=== PATIENT | male | born 1935 | race Caucasian/White ===

== ENCOUNTER 2017-12-01 06:25 | Inpatient (IN) | payer OTHER ==
[2017-12-01] MEDS: HYDROmorphONE 0.5 MG/0.5 ML SYG IV (06:36)
[2017-12-01] MEDS: PROPOFOL 100 ML IV ×3 (06:36→17:59)
[2017-12-01] MEDS: SODIUM CHLORIDE 0.9% 500 ML BAG IV* (06:52)
[2017-12-01] MEDS: VECURONIUM 100 MG in DEXTROSE 5% 100 ML IV ×2 (06:52→11:25)
[2017-12-01 06:53] LABS: WHITE BLOOD COUNT 9.8 10^3/ul (4.8-10.8)
[2017-12-01 06:53] LABS: ABNORMAL IP MESSAGE 1; HEMATOCRIT 42.4 % (42.0-52.0); HEMOGLOBIN 13.3 g/dl (14.0-18.0); MEAN CORPUSCULAR HEMOGLOBIN 29.5 pg (29.0-33.0); MEAN CORPUSCULAR HGB CONC 31.4 g/dl (32.0-37.0); MEAN PLATELET VOLUME 13.5 fl (7.4-10.4); NUCLEATED RED BLOOD CELLS% 0.9 /100WBC (0.0-0.0); PLATELET COUNT 70 10^3/UL (140-415); POSITIVE DIFF @See below; RED BLOOD COUNT 4.51 10^6/ul (4.70-6.10); RED CELL DISTRIBUTION WIDTH 15.9 % (11.5-14.5)
[2017-12-01 07:00] LABS: ADD MAN DIFF? YES
[2017-12-01] MEDS ORDERED: NA BICARBONATE 8.4% 50 ML SYG (07:00)
[2017-12-01] MEDS: ASPIRIN 300 MG SUPP PR (07:00)
[2017-12-01] MEDS ORDERED: EPINEPHrine 0.1 MG/ML SYG (07:00)
[2017-12-01] MEDS ORDERED: CA CHLORIDE 10% 10 ML SYRINGE (07:00)
[2017-12-01] MEDS: SOD CHLORIDE 0.9% 1,000 ML IV ×6 (07:20→20:17)
[2017-12-01 07:34] LABS: AADO2 Arterial 533.4 mmHg (7.0-24.0); Allen Test ACCEPTAB; Arterial Base Excess -16.7 mmol/L (-3.0-3); Arterial COHb 0.3 % (0.0-3.0); Arterial Fraction of Oxyhgb 95.2 % (93.0-99.0); Arterial HCO3 14.4 mmol/L (22.0-26.0); Arterial MetHb 0.5 % (0.0-1.5); Arterial Total Hemglobin 14.1 g/dl (12.0-18.0); MODE VENT - AC; Site Left Radial
[2017-12-01 08:08] LABS: ANISOCYTOSIS 1+ (0-0); EOSINOPHILS % (M) 1 % (0-7); ERYTHROBLAST% (NRBC) (M) 1 % (0-0); LYMPHOCYTES #M 6.8 10^3/ul (0.8-2.9); LYMPHOCYTES % (M) 70 % (15-51); MONOCYTE #M 0.4 10^3/ul (0.3-0.9); MONOCYTES % (M) 5 % (0-11); OVALOCYTES 1+ (0-0); PLATELET ESTIMATE DECREASED; PLATELET MORPHOLOGY COMMENT @See below; POIKILOCYTOSIS 1+ (0-0); POLYCHROMASIA 1+ (0-0); REACTIVE LYMPHOCYTES #M 0.5 10^3/ul (0.0-0.0); REACTIVE LYMPHOCYTES% (M) 6 % (0-0); SEGMENTED NEUTROPHILS (M) % 17 % (39-77); SMUDGE%M 14 % (0-0)
[2017-12-01 08:20] LABS: INR 2.64; PROTIME 28.9 Sec (11.9-14.9); PT RATIO 2.3
[2017-12-01 08:21] LABS: PARTIAL THROMBOPLASTIN TIME 51.9 Sec (25.0-35.0)
[2017-12-01 08:25] LABS: PHOSPHORUS 8.5 mg/dl (2.5-4.9)
[2017-12-01 08:25] LABS: MAGNESIUM 2.1 mg/dl (1.7-2.5)
[2017-12-01 08:26] LABS: ALANINE AMINOTRANSFERASE 110 IU/L (13-69); ALBUMIN 3.6 g/dl (3.3-4.9); ALBUMIN/GLOBULIN RATIO 1.16; ALKALINE PHOSPHATASE 84 IU/L (42-121); ANION GAP 23 (8-16); ASPARTATE AMINO TRANSFERASE 147 IU/L (15-46); BILIRUBIN,INDIRECT 0.4 mg/dl (0-1.1); BILIRUBIN,TOTAL 0.4 mg/dl (0.2-1.3); BLOOD UREA NITROGEN 21 mg/dl (7-20); CALCIUM 9.5 mg/dl (8.4-10.2); CARBON DIOXIDE 18 mmol/L (21-31); CHLORIDE 106 mmol/L (97-110); CREATININE 1.42 mg/dl (0.61-1.24); GLUCOSE 284 mg/dl (70-220); POTASSIUM 4.4 mmol/L (3.5-5.1); SODIUM 143 mmol/L (135-144); TOTAL PROTEIN 6.7 g/dl (6.1-8.1)
[2017-12-01] MEDS: CEFTRIAXONE 1 GM/50 ML (PMX) 50 ML IVPB (08:28)
[2017-12-01 08:40] LABS: TROPONIN-I 0.132 ng/ml (0.00-0.12)
[2017-12-01 08:43] LABS: LACTIC ACID 10.1 mmol/L (0.5-2.0)
[2017-12-01] MEDS: SOD CHLORIDE 0.9% 100 ML (08:54)
[2017-12-01] MEDS: IOHEXOL 0 ML (08:54)
[2017-12-01 08:55] LABS: ADD UMIC YES; UR ASCORBIC ACID NEGATIVE (NEGATIVE); UR BILIRUBIN (Dip) NEGATIVE (NEGATIVE); UR BLOOD (Dip) 2+ mg/dL (NEGATIVE); UR CLARITY CLEAR (CLEAR); UR COLOR YELLOW (YELLOW); UR GLUCOSE (Dip) NEGATIVE (NEGATIVE); UR KETONES (Dip) NEGATIVE (NEGATIVE); UR LEUKOCYTE ESTERASE (Dip) NEGATIVE Leu/ul (NEGATIVE); UR NITRITE (Dip) NEGATIVE (NEGATIVE); UR RBC 4 /HPF (0-5); UR SQUAMOUS EPITHELIAL CELL FEW /HPF (FEW); UR TOTAL PROTEIN (Dip) NEGATIVE (NEGATIVE); UR UROBILINOGEN (Dip) NEGATIVE (NEGATIVE); UR WBC 2 /HPF (0-5)
[2017-12-01] MEDS: IODIXANOL LOCM 100 ML BTL (08:55)
[2017-12-01] MEDS ORDERED: DOPamine-D5W 1.6 MG/ML 250 ML (10:14)
[2017-12-01 10:31] LABS: LACTIC ACID 8.6 mmol/L (0.5-2.0)
[2017-12-01 10:52] LABS: AADO2 Arterial 431.5 mmHg (7.0-24.0); Allen Test ACCEPTAB; Arterial Base Excess -15.4 mmol/L (-3.0-3); Arterial Blood Gas Oxygen Sat 94.8 mmHG (95.0-100.0); Arterial COHb 0.3 % (0.0-3.0); Arterial HCO3 12.9 mmol/L (22.0-26.0); Arterial MetHb 0.5 % (0.0-1.5); Arterial Total Hemglobin 14.6 g/dl (12.0-18.0); Arterial pCO2 38.7 mmhg (35-45); MODE VENT - AC; Site Right Radial
[2017-12-01] MEDS ORDERED: ACETAMINOPHEN 650MG/20.3ML CUP PO (11:30)
[2017-12-01] MEDS ORDERED: ACETAMINOPHEN 650 MG SUPP PR (11:30)
[2017-12-01] MEDS ORDERED: DEXTROSE 50% 50 ML SYRINGE IV ×2 (11:30)
[2017-12-01] MEDS ORDERED: MEPERIDINE 25 MG INJ IV ×2 (11:30)
[2017-12-01] MEDS ORDERED: MIDAZOLAM (DRIP) 50 mg/50 mL 50 ML IV (11:30)
[2017-12-01] MEDS ORDERED: GLUCAGON 1 MG INJ IM (12:00)
[2017-12-01] MEDS ORDERED: GLUCOSE GEL 15 GRAM TUBE BUCCAL (12:00)
[2017-12-01] MEDS ORDERED: PIPER-TAZO 3.375 GM IV (PMX) 100 ML IVPB (12:00)
[2017-12-01] MEDS ORDERED: GLUCOSE GEL 15 GRAM TUBE PO ×2 (12:00)
[2017-12-01] MEDS ORDERED: VANCOMYCIN IV PER PHARMACY XX (12:00)
[2017-12-01] MEDS: ARTIFICIAL TEARS 15 ML OPH BOTH EYES ×3 (12:20→21:33)
[2017-12-01] MEDS: OCULAR LUBRICANT 3.5 GM OPH OINT BOTH EYES ×3 (12:20→21:33)
[2017-12-01] MEDS: ACCU-CHEK XX ×11 (12:20→23:09)
[2017-12-01] MEDS: VANCOMYCIN 2 GM in SOD CHLORIDE 0.9% 500 ML IVPB (12:46)
[2017-12-01] MEDS: DOPamine-D5W 1.6 MG/ML 250 ML IV ×2 (12:46→18:00)
[2017-12-01 13:01] LABS: LACTIC ACID 8.3 mmol/L (0.5-2.0)
[2017-12-01] MEDS: PIPER-TAZO 3.375 GM IV (PMX) 100 ML IVPB ×2 (13:37→22:19)
[2017-12-01] MEDS: INSULIN HUMAN REGULAR 100 UNIT in SOD CHLORIDE 0.9% 99 ML IV ×2 (14:19→21:29)
[2017-12-01 17:29] LABS: AADO2 Arterial 432.6 mmHg (7.0-24.0); Allen Test ACCEPTAB; Arterial Base Excess -14.9 mmol/L (-3.0-3); Arterial Blood Gas Oxygen Sat 97.4 mmHG (95.0-100.0); Arterial COHb 0.3 % (0.0-3.0); Arterial Fraction of Oxyhgb 96.6 % (93.0-99.0); Arterial HCO3 13.5 mmol/L (22.0-26.0); Arterial MetHb 0.5 % (0.0-1.5); Arterial Total Hemglobin 15.2 g/dl (12.0-18.0); Arterial pCO2 35.1 mmhg (35-45); MODE VENT - AC; Site Right Radial; Temperature 33.8 C
[2017-12-01 18:40] LABS: ADD MAN DIFF? NO
[2017-12-01 18:44] LABS: ABNORMAL IP MESSAGE 1; BASOPHILS % 0.2 % (0.0-2.0); HEMATOCRIT 43.2 % (42.0-52.0); HEMOGLOBIN 14.2 g/dl (14.0-18.0); LYMPHOCYTES # 0.4 10^3/ul (0.8-2.9); LYMPHOCYTES % 1.9 % (15.0-51.0); MEAN CORPUSCULAR HEMOGLOBIN 29.6 pg (29.0-33.0); MEAN CORPUSCULAR HGB CONC 32.9 g/dl (32.0-37.0); MEAN CORPUSCULAR VOLUME 90.2 fl (82.0-101.0); MEAN PLATELET VOLUME 11.8 fl (7.4-10.4); MONOCYTES % 4.3 % (0.0-11.0); NEUTROPHIL # 21.6 10^3/ul (1.6-7.5); NEUTROPHILS % 93.2 % (39.0-77.0); POSITIVE DIFF @See below; RED BLOOD COUNT 4.79 10^6/ul (4.70-6.10); RED CELL DISTRIBUTION WIDTH 15.4 % (11.5-14.5)
[2017-12-01 18:44] LABS: WHITE BLOOD COUNT 23.2 10^3/ul (4.8-10.8)
[2017-12-01 18:45] LABS: PLATELET COUNT 115 10^3/UL (140-415)
[2017-12-01 19:06] LABS: INR 3.06; PT RATIO 2.5
[2017-12-01 19:07] LABS: AMYLASE 1144 U/L (11-123); ANION GAP 22 (8-16); BLOOD UREA NITROGEN 28 mg/dl (7-20); CALCIUM 8.6 mg/dl (8.4-10.2); CARBON DIOXIDE 16 mmol/L (21-31); CHLORIDE 107 mmol/L (97-110); CREATININE 1.92 mg/dl (0.61-1.24); GLUCOSE 314 mg/dl (70-220); LIPASE 59 U/L (23-300); MAGNESIUM 1.7 mg/dl (1.7-2.5); PARTIAL THROMBOPLASTIN TIME 49.9 Sec (25.0-35.0); PHOSPHORUS 3.7 mg/dl (2.5-4.9); POTASSIUM 3.3 mmol/L (3.5-5.1); SODIUM 142 mmol/L (135-144)
[2017-12-01 19:17] LABS: LACTIC ACID 6.8 mmol/L (0.5-2.0)
[2017-12-01 19:30] LABS: PROTIME 32.5 Sec (11.9-14.9)
[2017-12-01] MEDS: METOPROLOL 25 MG TAB PO (21:00)
[2017-12-01] MEDS: MAGNESIUM SULFATE 2 GM/50 ML 50 ML IVPB (21:21)
[2017-12-01] MEDS: POTASSIUM CHLORIDE 100 ML IVPB ×2 (21:32→23:17)
[2017-12-01] MEDS: FAMOTIDINE 20 MG TAB PO (21:33)
[2017-12-01] MEDS: ATORVASTATIN 40 MG TAB PO (21:33)
[2017-12-02] MEDS: VANCOMYCIN 1.5 GM in SOD CHLORIDE 0.9% 250 ML IVPB
[2017-12-02] MEDS: ACCU-CHEK XX ×24 (00:08→23:34)
[2017-12-02] MEDS: VECURONIUM 100 MG in DEXTROSE 5% 100 ML IV ×2 (00:16→13:07)
[2017-12-02] MEDS: POTASSIUM CHLORIDE 100 ML IVPB ×2 (00:30→01:59)
[2017-12-02 00:41] LABS: AADO2 Arterial 455.5 mmHg (7.0-24.0); Allen Test ACCEPTAB; Arterial Base Excess -11.7 mmol/L (-3.0-3); Arterial Blood Gas Oxygen Sat 97.3 mmHG (95.0-100.0); Arterial COHb 0.4 % (0.0-3.0); Arterial Fraction of Oxyhgb 96.5 % (93.0-99.0); Arterial MetHb 0.4 % (0.0-1.5); Arterial Total Hemglobin 14.4 g/dl (12.0-18.0); Arterial pCO2 31.4 mmhg (35-45); MODE VENT - AC; Site Right Radial; Temperature 33.4 C
[2017-12-02 00:42] LABS: ADD MAN DIFF? NO
[2017-12-02 00:46] LABS: ABNORMAL IP MESSAGE 1; BASOPHILS % 0.2 % (0.0-2.0); HEMATOCRIT 39.5 % (42.0-52.0); HEMOGLOBIN 13.2 g/dl (14.0-18.0); LYMPHOCYTES # 0.6 10^3/ul (0.8-2.9); MEAN CORPUSCULAR HEMOGLOBIN 29.7 pg (29.0-33.0); MEAN CORPUSCULAR HGB CONC 33.4 g/dl (32.0-37.0); MEAN CORPUSCULAR VOLUME 88.8 fl (82.0-101.0); MEAN PLATELET VOLUME 11.6 fl (7.4-10.4); MONOCYTE # 1.4 10^3/ul (0.3-0.9); MONOCYTES % 6.9 % (0.0-11.0); NEUTROPHIL # 17.7 10^3/ul (1.6-7.5); NEUTROPHILS % 89.4 % (39.0-77.0); PLATELET COUNT 92 10^3/UL (140-415); POSITIVE DIFF @See below; RED BLOOD COUNT 4.45 10^6/ul (4.70-6.10); RED CELL DISTRIBUTION WIDTH 15.4 % (11.5-14.5)
[2017-12-02 00:46] LABS: WHITE BLOOD COUNT 19.8 10^3/ul (4.8-10.8)
[2017-12-02 01:03] LABS: INR 3.81; PROTIME 38.8 Sec (11.9-14.9)
[2017-12-02 01:04] LABS: PARTIAL THROMBOPLASTIN TIME 48.4 Sec (25.0-35.0)
[2017-12-02 01:49] LABS: AMYLASE 950 U/L (11-123); ANION GAP 15 (8-16); BLOOD UREA NITROGEN 29 mg/dl (7-20); CALCIUM 8.2 mg/dl (8.4-10.2); CARBON DIOXIDE 19 mmol/L (21-31); CHLORIDE 110 mmol/L (97-110); CREATININE 2.06 mg/dl (0.61-1.24); GLUCOSE 131 mg/dl (70-220); LIPASE 51 U/L (23-300); MAGNESIUM 2.3 mg/dl (1.7-2.5); PHOSPHORUS 2.2 mg/dl (2.5-4.9); POTASSIUM 3.7 mmol/L (3.5-5.1); SODIUM 140 mmol/L (135-144)
[2017-12-02] MEDS: HEPARIN 1000 UNITS/ML 10 ML INJ IV (03:29)
[2017-12-02] MEDS ORDERED: HEPARIN 1000 UNITS/ML 10 ML INJ IV (03:30)
[2017-12-02] MEDS: HEPARIN 25000 UNITS/250 ML 250 ML IV (03:38)
[2017-12-02] MEDS: PROPOFOL 100 ML IV ×3 (05:30→22:34)
[2017-12-02] MEDS: PIPER-TAZO 3.375 GM IV (PMX) 100 ML IVPB ×3 (05:30→21:59)
[2017-12-02] MEDS: OCULAR LUBRICANT 3.5 GM OPH OINT BOTH EYES ×4 (05:36→23:56)
[2017-12-02] MEDS: ARTIFICIAL TEARS 15 ML OPH BOTH EYES ×4 (05:36→23:56)
[2017-12-02 06:11] LABS: ADD MAN DIFF? NO
[2017-12-02 06:18] LABS: AADO2 Arterial 462.5 mmHg (7.0-24.0); Allen Test ACCEPTAB; Arterial Base Excess -11.3 mmol/L (-3.0-3); Arterial Blood Gas Oxygen Sat 97.4 mmHG (95.0-100.0); Arterial COHb 0.2 % (0.0-3.0); Arterial Fraction of Oxyhgb 96.8 % (93.0-99.0); Arterial HCO3 14.5 mmol/L (22.0-26.0); Arterial MetHb 0.4 % (0.0-1.5); Arterial Total Hemglobin 14.4 g/dl (12.0-18.0); Arterial pCO2 27.6 mmhg (35-45); MODE VENT - AC; Site Right Radial
[2017-12-02 06:23] LABS: ABNORMAL IP MESSAGE 1; BASOPHILS % 0.2 % (0.0-2.0); HEMATOCRIT 38.9 % (42.0-52.0); HEMOGLOBIN 13.1 g/dl (14.0-18.0); LYMPHOCYTES # 0.8 10^3/ul (0.8-2.9); LYMPHOCYTES % 4.1 % (15.0-51.0); MEAN CORPUSCULAR HEMOGLOBIN 29.7 pg (29.0-33.0); MEAN CORPUSCULAR HGB CONC 33.7 g/dl (32.0-37.0); MEAN CORPUSCULAR VOLUME 88.2 fl (82.0-101.0); MEAN PLATELET VOLUME 11.9 fl (7.4-10.4); MONOCYTE # 1.3 10^3/ul (0.3-0.9); MONOCYTES % 6.7 % (0.0-11.0); NEUTROPHIL # 17.6 10^3/ul (1.6-7.5); NEUTROPHILS % 88.1 % (39.0-77.0); PLATELET COUNT 92 10^3/UL (140-415); POSITIVE DIFF @See below; RED BLOOD COUNT 4.41 10^6/ul (4.70-6.10); RED CELL DISTRIBUTION WIDTH 15.2 % (11.5-14.5)
[2017-12-02 06:23] LABS: WHITE BLOOD COUNT 19.9 10^3/ul (4.8-10.8)
[2017-12-02 06:38] LABS: PROTIME 66.1 Sec (11.9-14.9); PT RATIO 5.2
[2017-12-02 06:57] LABS: INR 7.42
[2017-12-02 07:00] LABS: PARTIAL THROMBOPLASTIN TIME > 180.0 Sec (25.0-35.0)
[2017-12-02 07:30] LABS: ALANINE AMINOTRANSFERASE 99 IU/L (13-69); ALBUMIN/GLOBULIN RATIO 1.07; ALKALINE PHOSPHATASE 57 IU/L (42-121); ANION GAP 20 (8-16); ASPARTATE AMINO TRANSFERASE 184 IU/L (15-46); BILIRUBIN,INDIRECT 0.1 mg/dl (0-1.1); BILIRUBIN,TOTAL 0.1 mg/dl (0.2-1.3); BLOOD UREA NITROGEN 29 mg/dl (7-20); CARBON DIOXIDE 17 mmol/L (21-31); CHLORIDE 108 mmol/L (97-110); CREATININE 2.05 mg/dl (0.61-1.24); GLUCOSE 98 mg/dl (70-220); SODIUM 141 mmol/L (135-144); TOTAL PROTEIN 5.8 g/dl (6.1-8.1)
[2017-12-02 07:30] LABS: HEPATITIS B SURFACE ANTIBODY NEGATIVE (NEGATIVE)
[2017-12-02 07:46] LABS: LIPASE 107 U/L (23-300)
[2017-12-02 07:46] LABS: AMYLASE 882 U/L (11-123)
[2017-12-02] MEDS: AMIODARONE 200 MG TAB PO (08:34)
[2017-12-02] MEDS: METOPROLOL 25 MG TAB PO (08:35)
[2017-12-02 09:04] LABS: HEPATITIS B CORE ANTIBODY NEGATIVE (NEGATIVE); HEPATITIS C VIRAL ANTIBODY NEGATIVE (NEGATIVE)
[2017-12-02] MEDS: FUROSEMIDE 20 MG TAB PO (09:17)
[2017-12-02] MEDS: FAMOTIDINE 20 MG TAB PO ×2 (09:17→20:59)
[2017-12-02 10:21] LABS: PARTIAL THROMBOPLASTIN TIME > 180.0 Sec (25.0-35.0)
[2017-12-02] MEDS: SOD CHLORIDE 0.45% 1,000 ML IV ×2 (10:37→23:42)
[2017-12-02] MEDS ORDERED: ATROPINE 1 MG/10 ML SYRINGE (10:54)
[2017-12-02 11:26] LABS: AADO2 Arterial 437.5 mmHg (7.0-24.0); Allen Test ACCEPTAB; Arterial Base Excess -9.6 mmol/L (-3.0-3); Arterial COHb 0.6 % (0.0-3.0); Arterial Fraction of Oxyhgb 97.2 % (93.0-99.0); Arterial HCO3 15.8 mmol/L (22.0-26.0); Arterial MetHb 0.4 % (0.0-1.5); Arterial Total Hemglobin 13.8 g/dl (12.0-18.0); Arterial pCO2 28.1 mmhg (35-45); MODE VENT - AC; Site Right Radial
[2017-12-02] MEDS: FUROSEMIDE 40 MG INJ IV (11:29)
[2017-12-02] MEDS ORDERED: ACETAMINOPHEN 650MG/20.3ML CUP PO (11:30)
[2017-12-02 11:39] LABS: ADD MAN DIFF? NO
[2017-12-02 11:43] LABS: WHITE BLOOD COUNT 21.5 10^3/ul (4.8-10.8)
[2017-12-02 11:43] LABS: ABNORMAL IP MESSAGE 1; BASOPHILS % 0.1 % (0.0-2.0); HEMATOCRIT 40.2 % (42.0-52.0); HEMOGLOBIN 13.9 g/dl (14.0-18.0); LYMPHOCYTES # 0.6 10^3/ul (0.8-2.9); LYMPHOCYTES % 2.9 % (15.0-51.0); MEAN CORPUSCULAR HEMOGLOBIN 30.1 pg (29.0-33.0); MEAN CORPUSCULAR HGB CONC 34.6 g/dl (32.0-37.0); MEAN PLATELET VOLUME 12.2 fl (7.4-10.4); MONOCYTES % 4.8 % (0.0-11.0); NEUTROPHIL # 19.7 10^3/ul (1.6-7.5); NEUTROPHILS % 91.7 % (39.0-77.0); POSITIVE DIFF @See below; RED BLOOD COUNT 4.62 10^6/ul (4.70-6.10); RED CELL DISTRIBUTION WIDTH 15.2 % (11.5-14.5)
[2017-12-02 11:44] LABS: PLATELET COUNT 89 10^3/UL (140-415)
[2017-12-02 11:59] LABS: AMYLASE 894 U/L (11-123); ANION GAP 20 (8-16); BLOOD UREA NITROGEN 34 mg/dl (7-20); CALCIUM 8.6 mg/dl (8.4-10.2); CARBON DIOXIDE 17 mmol/L (21-31); CHLORIDE 107 mmol/L (97-110); CREATININE 2.36 mg/dl (0.61-1.24); GLUCOSE 144 mg/dl (70-220); LIPASE 66 U/L (23-300); PHOSPHORUS 4.7 mg/dl (2.5-4.9); SODIUM 139 mmol/L (135-144)
[2017-12-02 12:14] LABS: POTASSIUM 5.2 mmol/L (3.5-5.1)
[2017-12-02 12:24] LABS: PARTIAL THROMBOPLASTIN TIME > 180.0 Sec (25.0-35.0)
[2017-12-02 12:33] LABS: HEPATITIS B SURFACE ANTIGEN NEGATIVE (NEGATIVE)
[2017-12-02] MEDS: ACETAMINOPHEN 650 MG SUPP PR ×3 (12:48→23:42)
[2017-12-02 13:57] LABS: INR 5.62; PROTIME 52.9 Sec (11.9-14.9); PT RATIO 4.1
[2017-12-02 14:04] LABS: PARTIAL THROMBOPLASTIN TIME 102.9 Sec (25.0-35.0)
[2017-12-02 18:25] LABS: AADO2 Arterial 322.8 mmHg (7.0-24.0); Allen Test ACCEPTAB; Arterial Base Excess -7.5 mmol/L (-3.0-3); Arterial Blood Gas Oxygen Sat 97.4 mmHG (95.0-100.0); Arterial COHb 0.5 % (0.0-3.0); Arterial Fraction of Oxyhgb 96.5 % (93.0-99.0); Arterial HCO3 16.1 mmol/L (22.0-26.0); Arterial MetHb 0.4 % (0.0-1.5); Arterial Total Hemglobin 16.3 g/dl (12.0-18.0); Arterial pCO2 25.2 mmhg (35-45); MODE VENT - AC; Site Right Radial; Temperature 34.1 C
[2017-12-02 19:52] LABS: ADD MAN DIFF? NO
[2017-12-02 19:54] LABS: WHITE BLOOD COUNT 22.7 10^3/ul (4.8-10.8)
[2017-12-02 19:54] LABS: ABNORMAL IP MESSAGE 1; BASOPHILS % 0.1 % (0.0-2.0); HEMATOCRIT 38.9 % (42.0-52.0); HEMOGLOBIN 13.5 g/dl (14.0-18.0); LYMPHOCYTES # 0.6 10^3/ul (0.8-2.9); LYMPHOCYTES % 2.6 % (15.0-51.0); MEAN CORPUSCULAR HEMOGLOBIN 30.1 pg (29.0-33.0); MEAN CORPUSCULAR HGB CONC 34.7 g/dl (32.0-37.0); MEAN CORPUSCULAR VOLUME 86.6 fl (82.0-101.0); MEAN PLATELET VOLUME 12.3 fl (7.4-10.4); MONOCYTES % 4.5 % (0.0-11.0); NEUTROPHILS % 92.3 % (39.0-77.0); PLATELET COUNT 97 10^3/UL (140-415); POSITIVE DIFF @See below; RED BLOOD COUNT 4.49 10^6/ul (4.70-6.10); RED CELL DISTRIBUTION WIDTH 15.5 % (11.5-14.5)
[2017-12-02 20:14] LABS: AMYLASE 662 U/L (11-123); ANION GAP 21 (8-16); BLOOD UREA NITROGEN 36 mg/dl (7-20); CALCIUM 8.1 mg/dl (8.4-10.2); CARBON DIOXIDE 15 mmol/L (21-31); CHLORIDE 106 mmol/L (97-110); CREATININE 2.47 mg/dl (0.61-1.24); GLUCOSE 138 mg/dl (70-220); LIPASE 36 U/L (23-300); MAGNESIUM 1.8 mg/dl (1.7-2.5); PHOSPHORUS 4.9 mg/dl (2.5-4.9); SODIUM 136 mmol/L (135-144)
[2017-12-02 20:15] LABS: PROTIME 63.4 Sec (11.9-14.9)
[2017-12-02 20:22] LABS: INR 7.04
[2017-12-02 20:23] LABS: POTASSIUM 5.7 mmol/L (3.5-5.1)
[2017-12-02] MEDS: ATORVASTATIN 40 MG TAB PO (20:59)
[2017-12-02] MEDS: INSULIN HUMAN REGULAR 100 UNIT in SOD CHLORIDE 0.9% 99 ML IV (22:22)
[2017-12-02 23:20] LABS: Allen Test ACCEPTAB; Arterial Base Excess -7.5 mmol/L (-3.0-3); Arterial Blood Gas Oxygen Sat 98.6 mmHG (95.0-100.0); Arterial COHb 0.2 % (0.0-3.0); Arterial Fraction of Oxyhgb 97.9 % (93.0-99.0); Arterial HCO3 15.3 mmol/L (22.0-26.0); Arterial MetHb 0.5 % (0.0-1.5); Arterial Total Hemglobin 14.4 g/dl (12.0-18.0); Arterial pCO2 23.7 mmhg (35-45); MODE VENT - AC; Site Right Radial; Temperature 35.7 C
[2017-12-02] MEDS: VANCOMYCIN 1 GM 250 ML IVPB (23:56)
[2017-12-03 01:01] LABS: POTASSIUM 5.7 mmol/L (3.5-5.1)
[2017-12-03] MEDS: ACCU-CHEK XX ×24 (01:05→23:00)
[2017-12-03] MEDS: VECURONIUM 100 MG in DEXTROSE 5% 100 ML IV (01:58)
[2017-12-03] MEDS: ACETAMINOPHEN 650 MG SUPP PR (05:23)
[2017-12-03] MEDS: PIPER-TAZO 3.375 GM IV (PMX) 100 ML IVPB ×3 (05:23→22:05)
[2017-12-03] MEDS: OCULAR LUBRICANT 3.5 GM OPH OINT BOTH EYES ×3 (05:24→18:51)
[2017-12-03] MEDS: ARTIFICIAL TEARS 15 ML OPH BOTH EYES ×3 (05:25→18:51)
[2017-12-03 06:03] LABS: ADD MAN DIFF? NO
[2017-12-03 06:05] LABS: WHITE BLOOD COUNT 21.8 10^3/ul (4.8-10.8)
[2017-12-03 06:05] LABS: BASOPHILS % 0.1 % (0.0-2.0); HEMATOCRIT 37.2 % (42.0-52.0); LYMPHOCYTES # 0.9 10^3/ul (0.8-2.9); MEAN CORPUSCULAR HGB CONC 34.9 g/dl (32.0-37.0); MEAN CORPUSCULAR VOLUME 85.9 fl (82.0-101.0); MEAN PLATELET VOLUME 12.6 fl (7.4-10.4); MONOCYTE # 1.2 10^3/ul (0.3-0.9); MONOCYTES % 5.7 % (0.0-11.0); NEUTROPHIL # 19.4 10^3/ul (1.6-7.5); NEUTROPHILS % 89.4 % (39.0-77.0); PLATELET COUNT 100 10^3/UL (140-415); RED BLOOD COUNT 4.33 10^6/ul (4.70-6.10)
[2017-12-03 06:31] LABS: CREATINE KINASE 268 IU/L (23-200)
[2017-12-03 06:32] LABS: PROTIME 73.6 Sec (11.9-14.9); PT RATIO 5.8
[2017-12-03 06:34] LABS: ALANINE AMINOTRANSFERASE 79 IU/L (13-69); ALBUMIN/GLOBULIN RATIO 1.03; ALKALINE PHOSPHATASE 59 IU/L (42-121); ANION GAP 22 (8-16); ASPARTATE AMINO TRANSFERASE 163 IU/L (15-46); BILIRUBIN,INDIRECT 0.5 mg/dl (0-1.1); BILIRUBIN,TOTAL 0.5 mg/dl (0.2-1.3); BLOOD UREA NITROGEN 42 mg/dl (7-20); CARBON DIOXIDE 15 mmol/L (21-31); CHLORIDE 106 mmol/L (97-110); CREATININE 2.98 mg/dl (0.61-1.24); GLUCOSE 139 mg/dl (70-220); MAGNESIUM 1.9 mg/dl (1.7-2.5); SODIUM 137 mmol/L (135-144); TOTAL PROTEIN 5.9 g/dl (6.1-8.1)
[2017-12-03 06:38] LABS: POTASSIUM 6.1 mmol/L (3.5-5.1)
[2017-12-03 06:43] LABS: CK INDEX 13.2
[2017-12-03 06:50] LABS: INR 8.49
[2017-12-03 06:53] LABS: FREE T4 (FREE THYROXINE) 1.45 ng/dl (0.85-1.93)
[2017-12-03] MEDS: PHYTONADIONE 10 MG/ML INJ SC (09:06)
[2017-12-03] MEDS: CALCIUM GLUCONATE 10% 2 GM in DEXTROSE 5% 100 ML IVPB (09:20)
[2017-12-03] MEDS: FAMOTIDINE 20 MG TAB PO (09:35)
[2017-12-03] MEDS: FERROUS SULFATE (EC) 325 MG TAB PO (09:35)
[2017-12-03] MEDS: NA POLYST SULFON 15 GM/60 ML BTL PO (09:35)
[2017-12-03] MEDS: PROPOFOL 100 ML IV ×2 (11:37→17:30)
[2017-12-03] MEDS: SOD CHLORIDE 0.45% 1,000 ML IV (12:40)
[2017-12-03] MEDS: FENTAnyl (DRIP) 1000 mcg/100mL 100 ML IV (13:04)
[2017-12-03] MEDS: SOD CHLORIDE 0.9% 250 ML IV* (14:01)
[2017-12-03 18:43] LABS: TYPE AND SCREEN 1 1
[2017-12-03] MEDS: PANTOPRAZOLE 40 MG INJ IV (18:51)
[2017-12-03] MEDS: ATORVASTATIN 40 MG TAB PO (21:00)
[2017-12-03 23:49] LABS: VANCOMYCIN,TROUGH 24.9 ug/ml (10.0-20.0)
[2017-12-04] MEDS: ARTIFICIAL TEARS 15 ML OPH BOTH EYES ×4 (00:05→17:13)
[2017-12-04] MEDS: ACCU-CHEK XX ×24 (00:05→23:30)
[2017-12-04] MEDS: OCULAR LUBRICANT 3.5 GM OPH OINT BOTH EYES ×4 (00:42→17:13)
[2017-12-04] MEDS: SOD CHLORIDE 0.45% 1,000 ML IV ×3 (02:58→19:41)
[2017-12-04] MEDS: PROPOFOL 100 ML IV ×3 (04:45→20:37)
[2017-12-04 05:16] LABS: ADD MAN DIFF? NO
[2017-12-04 05:25] LABS: WHITE BLOOD COUNT 14.8 10^3/ul (4.8-10.8)
[2017-12-04 05:25] LABS: ABNORMAL IP MESSAGE 1; BASOPHILS % 0.1 % (0.0-2.0); EOSINOPHILS % 0.1 % (0.0-7.0); HEMATOCRIT 30.6 % (42.0-52.0); HEMOGLOBIN 10.4 g/dl (14.0-18.0); LYMPHOCYTES % 6.8 % (15.0-51.0); MEAN CORPUSCULAR HEMOGLOBIN 29.9 pg (29.0-33.0); MEAN CORPUSCULAR VOLUME 87.9 fl (82.0-101.0); MEAN PLATELET VOLUME 13.1 fl (7.4-10.4); MONOCYTE # 0.9 10^3/ul (0.3-0.9); MONOCYTES % 5.9 % (0.0-11.0); NEUTROPHIL # 12.8 10^3/ul (1.6-7.5); NEUTROPHILS % 86.2 % (39.0-77.0); NUCLEATED RED BLOOD CELLS% 0.1 /100WBC (0.0-0.0); PLATELET COUNT 72 10^3/UL (140-415); POSITIVE DIFF @See below; RED BLOOD COUNT 3.48 10^6/ul (4.70-6.10); RED CELL DISTRIBUTION WIDTH 16.3 % (11.5-14.5)
[2017-12-04 05:46] LABS: PROTIME 31.2 Sec (11.9-14.9); PT RATIO 2.4
[2017-12-04 05:59] LABS: ANION GAP 19 (8-16); BLOOD UREA NITROGEN 54 mg/dl (7-20); CARBON DIOXIDE 20 mmol/L (21-31); CHLORIDE 106 mmol/L (97-110); CREATININE 3.95 mg/dl (0.61-1.24); GLUCOSE 112 mg/dl (70-220); POTASSIUM 4.7 mmol/L (3.5-5.1); SODIUM 140 mmol/L (135-144)
[2017-12-04] MEDS: PIPER-TAZO 3.375 GM IV (PMX) 100 ML IVPB (06:22)
[2017-12-04] MEDS: PANTOPRAZOLE 40 MG INJ IV (06:23)
[2017-12-04] MEDS ORDERED: FAMOTIDINE 20 MG TAB PO (09:00)
[2017-12-04] MEDS ORDERED: PHYTONADIONE 10 MG/ML INJ SC (09:00)
[2017-12-04] MEDS: DOPamine-D5W 1.6 MG/ML 250 ML IV (10:05)
[2017-12-04] MEDS: INSULIN HUMAN REGULAR 100 UNIT in SOD CHLORIDE 0.9% 99 ML IV (11:40)
[2017-12-04] MEDS: PIPER-TAZO 2.25 GM (PMX) 50 ML IVPB ×2 (13:27→23:38)
[2017-12-04] MEDS: PANTOPRAZOLE IV 80 MG in SOD CHLORIDE 0.9% 100 ML IV (15:10)
[2017-12-04] MEDS: FENTAnyl (DRIP) 1000 mcg/100mL 100 ML IV ×2 (15:23→23:41)
[2017-12-04] MEDS: ATORVASTATIN 40 MG TAB PO (23:38)
[2017-12-05] MEDS: PANTOPRAZOLE IV 80 MG in SOD CHLORIDE 0.9% 100 ML IV ×2 (01:57→23:33)
[2017-12-05] MEDS: ACCU-CHEK XX ×22 (01:58→21:00)
[2017-12-05 05:03] LABS: ADD MAN DIFF? NO
[2017-12-05 05:13] LABS: ABNORMAL IP MESSAGE 1; BASOPHILS % 0.2 % (0.0-2.0); EOSINOPHILS # 0.1 10^3/ul (0.0-0.5); EOSINOPHILS % 0.3 % (0.0-7.0); HEMATOCRIT 33.1 % (42.0-52.0); HEMOGLOBIN 11.4 g/dl (14.0-18.0); LYMPHOCYTES # 1.4 10^3/ul (0.8-2.9); LYMPHOCYTES % 8.5 % (15.0-51.0); MEAN CORPUSCULAR HGB CONC 34.4 g/dl (32.0-37.0); MEAN CORPUSCULAR VOLUME 87.1 fl (82.0-101.0); MEAN PLATELET VOLUME 13.1 fl (7.4-10.4); MONOCYTE # 1.1 10^3/ul (0.3-0.9); MONOCYTES % 6.6 % (0.0-11.0); NEUTROPHIL # 13.7 10^3/ul (1.6-7.5); NEUTROPHILS % 83.4 % (39.0-77.0); NUCLEATED RED BLOOD CELLS% 0.2 /100WBC (0.0-0.0); PLATELET COUNT 80 10^3/UL (140-415); POSITIVE DIFF @See below; RED CELL DISTRIBUTION WIDTH 16.4 % (11.5-14.5)
[2017-12-05 05:13] LABS: WHITE BLOOD COUNT 16.4 10^3/ul (4.8-10.8)
[2017-12-05 05:33] LABS: INR 2.45; PROTIME 27.2 Sec (11.9-14.9); PT RATIO 2.1
[2017-12-05 05:43] LABS: ANION GAP 19 (8-16); BLOOD UREA NITROGEN 59 mg/dl (7-20); CALCIUM 7.9 mg/dl (8.4-10.2); CARBON DIOXIDE 18 mmol/L (21-31); CHLORIDE 107 mmol/L (97-110); CREATININE 4.49 mg/dl (0.61-1.24); GLUCOSE 94 mg/dl (70-220); PHOSPHORUS 5.8 mg/dl (2.5-4.9); POTASSIUM 4.5 mmol/L (3.5-5.1); SODIUM 139 mmol/L (135-144)
[2017-12-05] MEDS: ARTIFICIAL TEARS 15 ML OPH BOTH EYES ×5 (06:26→23:33)
[2017-12-05] MEDS: OCULAR LUBRICANT 3.5 GM OPH OINT BOTH EYES ×5 (06:26→23:33)
[2017-12-05] MEDS: PIPER-TAZO 2.25 GM (PMX) 50 ML IVPB ×3 (06:27→22:46)
[2017-12-05 07:26] LABS: AADO2 Arterial 75.3 mmHg (7.0-24.0); Allen Test ACCEPTAB; Arterial Base Excess -5.5 mmol/L (-3.0-3); Arterial Blood Gas Oxygen Sat 98.5 mmHG (95.0-100.0); Arterial COHb 0.3 % (0.0-3.0); Arterial Fraction of Oxyhgb 97.7 % (93.0-99.0); Arterial HCO3 16.1 mmol/L (22.0-26.0); Arterial MetHb 0.5 % (0.0-1.5); Arterial Total Hemglobin 12.9 g/dl (12.0-18.0); Arterial pCO2 22.5 mmhg (35-45); MODE VENT - AC; Site Right Radial
[2017-12-05] MEDS: FERROUS SULFATE (EC) 325 MG TAB PO (08:04)
[2017-12-05] MEDS: VANCOMYCIN 1 GM 250 ML IVPB (08:04)
[2017-12-05] MEDS: INSULIN ASPART [NOVOLOG] 3 ML PEN SC ×3 (12:27→21:00)
[2017-12-05] MEDS: LEVETIRACETAM IV 750 MG in DEXTROSE 5% 100 ML IVPB (13:30)
[2017-12-05] MEDS: PROPOFOL 100 ML IV (17:30)
[2017-12-05] MEDS: ATORVASTATIN 40 MG TAB PO (22:46)
[2017-12-06] MEDS: INSULIN ASPART [NOVOLOG] 3 ML PEN SC ×2 (01:00→05:00)
[2017-12-06] MEDS: ACCU-CHEK XX (02:00)
[2017-12-06] MEDS: SOD CHLORIDE 0.45% 1,000 ML IV ×2 (03:47→07:20)
[2017-12-06] MEDS: LEVETIRACETAM IV 750 MG in DEXTROSE 5% 100 ML IVPB (03:47)
[2017-12-06] MEDS: PROPOFOL 100 ML IV (05:23)
[2017-12-06] MEDS: OCULAR LUBRICANT 3.5 GM OPH OINT BOTH EYES (05:32)
[2017-12-06] MEDS: PIPER-TAZO 2.25 GM (PMX) 50 ML IVPB (05:32)
[2017-12-06] MEDS: ARTIFICIAL TEARS 15 ML OPH BOTH EYES (05:33)
[2017-12-06 06:18] LABS: ADD MAN DIFF? NO
[2017-12-06 06:20] LABS: WHITE BLOOD COUNT 13.5 10^3/ul (4.8-10.8)
[2017-12-06 06:20] LABS: ABNORMAL IP MESSAGE 1; BASOPHIL # 0.1 10^3/ul (0.0-0.1); BASOPHILS % 0.4 % (0.0-2.0); EOSINOPHILS # 0.2 10^3/ul (0.0-0.5); EOSINOPHILS % 1.5 % (0.0-7.0); HEMATOCRIT 34.4 % (42.0-52.0); HEMOGLOBIN 11.9 g/dl (14.0-18.0); LYMPHOCYTES # 1.1 10^3/ul (0.8-2.9); LYMPHOCYTES % 7.9 % (15.0-51.0); MEAN CORPUSCULAR HEMOGLOBIN 30.1 pg (29.0-33.0); MEAN CORPUSCULAR HGB CONC 34.6 g/dl (32.0-37.0); MEAN CORPUSCULAR VOLUME 86.9 fl (82.0-101.0); MEAN PLATELET VOLUME 12.1 fl (7.4-10.4); MONOCYTE # 1.1 10^3/ul (0.3-0.9); MONOCYTES % 8.2 % (0.0-11.0); NEUTROPHILS % 81.2 % (39.0-77.0); NUCLEATED RED BLOOD CELLS% 0.2 /100WBC (0.0-0.0); PLATELET COUNT 91 10^3/UL (140-415); POSITIVE DIFF @See below; RED BLOOD COUNT 3.96 10^6/ul (4.70-6.10); RED CELL DISTRIBUTION WIDTH 15.9 % (11.5-14.5)
[2017-12-06 06:42] LABS: INR 2.98; PROTIME 31.9 Sec (11.9-14.9); PT RATIO 2.5
[2017-12-06 06:46] LABS: ALANINE AMINOTRANSFERASE 46 IU/L (13-69); ALKALINE PHOSPHATASE 70 IU/L (42-121); ASPARTATE AMINO TRANSFERASE 105 IU/L (15-46); BILIRUBIN,INDIRECT 0.6 mg/dl (0-1.1); BILIRUBIN,TOTAL 0.6 mg/dl (0.2-1.3); TOTAL PROTEIN 6.1 g/dl (6.1-8.1)
[2017-12-06 06:52] LABS: ANION GAP 20 (8-16); BLOOD UREA NITROGEN 65 mg/dl (7-20); CALCIUM 8.1 mg/dl (8.4-10.2); CARBON DIOXIDE 16 mmol/L (21-31); CHLORIDE 110 mmol/L (97-110); CREATININE 4.56 mg/dl (0.61-1.24); GLUCOSE 125 mg/dl (70-220); POTASSIUM 4.1 mmol/L (3.5-5.1); SODIUM 142 mmol/L (135-144)
[2017-12-06] MEDS: morphine 2 MG INJ IV (15:03)
[2017-12-06] MEDS: LORAZEPAM 2 MG INJ IV ×4 (15:03→22:03)
[2017-12-06] MEDS: morphine (DRIP) 100 MG/100 ML 100 ML IV ×3 (15:03→22:39)
[2017-12-06] MEDS: FENTAnyl (DRIP) 1000 mcg/100mL 100 ML IV (17:11)
[2017-12-07] MEDS: FENTAnyl (DRIP) 1000 mcg/100mL 100 ML IV ×2 (00:03→04:52)
[2017-12-07] MEDS: morphine (DRIP) 100 MG/100 ML 100 ML IV ×5 (02:30→16:37)
[2017-12-07] MEDS: LORAZEPAM 2 MG INJ IV ×5 (08:58→16:49)
== END 2017-12-07 19:30 | disposition expired | DRG 308 ==
LOC: MS1 12-07 15:03 → E/R 06:25 → ICU 08:06
PROC: 5A1955Z Respiratory Ventilation, Greater than 96 Consecutive Hours (ICD-10-PCS; principal; 2017-12-01)
PROC: 0BH17EZ Insertion of Endotracheal Airway into Trachea, Via Natural or Artificial Opening (ICD-10-PCS; 2017-12-01)
PROC: 05HM33Z Insertion of Infusion Device into Right Internal Jugular Vein, Percutaneous Approach (ICD-10-PCS; 2017-12-01)
PROC: 5A12012 Performance of Cardiac Output, Single, Manual (ICD-10-PCS; 2017-12-01)
PROC: 30233K1 Transfusion of Nonautologous Frozen Plasma into Peripheral Vein, Percutaneous Approach (ICD-10-PCS; 2017-12-03)
DX: I49.01 Ventricular fibrillation (principal); K72.00 Acute and subacute hepatic failure without coma; G93.40 Encephalopathy, unspecified; J69.0 Pneumonitis due to inhalation of food and vomit; N17.0 Acute kidney failure with tubular necrosis; J96.01 Acute respiratory failure with hypoxia; E87.2 Acidosis; G93.1 Anoxic brain damage, not elsewhere classified; I13.0 Hypertensive heart and chronic kidney disease with heart failure and stage 1 through stage 4 chronic kidney disease, or unspecified chronic kidney disease; D68.61 Antiphospholipid syndrome; Z68.41 Body mass index [BMI] 40.0-44.9, adult; D68.9 Coagulation defect, unspecified; K92.2 Gastrointestinal hemorrhage, unspecified; R57.0 Cardiogenic shock; I46.2 Cardiac arrest due to underlying cardiac condition; E78.5 Hyperlipidemia, unspecified; E66.9 Obesity, unspecified; E87.5 Hyperkalemia; I25.10 Atherosclerotic heart disease of native coronary artery without angina pectoris; I48.91 Unspecified atrial fibrillation; I50.9 Heart failure, unspecified; I47.1 Supraventricular tachycardia; I44.1 Atrioventricular block, second degree; N18.9 Chronic kidney disease, unspecified; Z95.1 Presence of aortocoronary bypass graft; Z86.711 Personal history of pulmonary embolism; Z95.2 Presence of prosthetic heart valve; Z79.01 Long term (current) use of anticoagulants
CPT/HCPCS: 31500; 36415; 36430; 36600; 70450; 71045; 71275; 76700; 76937; 80048; 80053; 80076; 80202; 81001; 82150; 82550; 82553; 82803; 82962; 83605; 83690; 83735; 84100; 84132; 84439; 84443; 84484; 85025; 85384; 85610; 85730; 86704; 86706; 86708; 86709; 86803; 86850; 86900; 86901; 87040; 87081; 87086; 87340; 92950; 93005; 93306; 94002; 94003; 94770; 95819; 96365; 96366; 96368; 96375; 99291-25